=== PATIENT | female | born 1950 | race African-American/Black ===

== ENCOUNTER 2021-09-27 12:08 | Inpatient (IN) | payer MEDICARE ==
[~2021-09-27] VITALS: Ht 165.1 cm; Wt 57.3 kg
[2021-09-27] MEDS ORDERED: MORPHINE SULFATE 4 MG/ML CPJ (NOT FOR IM USE) IV ONE (13:30)
[2021-09-27 13:47] LABS: BASOPHILS % 0.7 % (0.0-2.0); EOSINOPHILS % 4.7 % (0.0-5.0); HEMATOCRIT. 30.1 % (36.0-48.0); HEMOGLOBIN. 9.8 g/dL (12.0-16.0); LYMPHOCYTES % 49.3 % (20.0-50.0); MEAN CORPUSCULAR HEMOGLOBIN 24.4 pg (28.0-32.0); MEAN CORPUSCULAR VOLUME 74.9 fL (81.0-99.0); MEAN PLATELET VOLUME 7.5 fl (7.4-10.4); MONOCYTES % 6.7 % (2.0-8.0); NEUTROPHILS % 38.6 % (40.0-76.0); PLATELET 238 x1000/uL (130-400); RED BLOOD CELL COUNT 4.02 mill/uL (4.2-5.4); RED CELL DISTRIBUTION WIDTH 14.3 % (11.6-14.6)
[2021-09-27 13:52] LABS: CHLORIDE 108 mEq/L (98-107)
[2021-09-27 13:56] LABS: ETHANOL BLOOD < 10 mg/dL
[2021-09-27] MEDS ORDERED: AMOXICILLIN 500 MG CAPSULE PO ONE (14:00)
[2021-09-27] MEDS ORDERED: PREDNISONE 20MG TABLET PO ONE (14:00)
[2021-09-27 14:51] LABS: CLARITY URINE CLEAR (CLEAR); COLOR URINE YELLOW (YELLOW); KETONES URINE NEGATIVE (NEGATIVE); LEUKOCYTE ESTERASE URINE 3+ (NEGATIVE); NITRITE URINE NEGATIVE (NEGATIVE); OCCULT BLOOD URINE NEGATIVE (NEGATIVE); PH URINE 7.5 (4.5-8.0); PROTEIN URINE NEGATIVE (NEGATIVE); SPECIFIC GRAVITY URINE 1.008 (1.005-1.030); UROBILINOGEN URINE 0.2 E.U./dL (0.2-1.0)
[2021-09-27 15:07] LABS: OPIATES URINE SCREEN NEGATIVE (NEGATIVE)
[2021-09-27 15:08] LABS: *AMPHETAMINES SCREEN URINE NEGATIVE (NEGATIVE); *BARBITURATES SCREEN URINE NEGATIVE (NEGATIVE); *BENZODIAZEPINES SCREEN URINE PRESUMTIVE POSITIVE (NEGATIVE); *COCAINE SCREEN URINE NEGATIVE (NEGATIVE); CANNABINOID URINE SCREEN NEGATIVE (NEGATIVE); METHADONE URINE SCREEN NEGATIVE (NEGATIVE); PHENCYCLIDINE URINE SCREEN NEGATIVE (NEGATIVE)
[2021-09-27] MEDS ORDERED: CEFTRIAXONE 1 G PREMIX 50 ML IV ONE (16:45)
[2021-09-27] MEDS ORDERED: ACETAMINOPHEN 325MG TABLET PO NR (18:00)
[2021-09-27] MEDS ORDERED: MORPHINE SULFATE 2 MG/ML CPJ (NOT FOR IM USE) IV NR (18:00)
[2021-09-27] MEDS ORDERED: MAGNESIUM/ALUMINUM HYDROXIDE/SIMETHICONE 30ML UDC PO PRN (19:45)
[2021-09-27] MEDS ORDERED: ACETAMINOPHEN 325MG TABLET PO PRN ×2 (19:45)
[2021-09-27] MEDS ORDERED: IPRATROPIUM/ALBUTEROL 0.5-3(2.5)MG/3ML NEB NEB PRN (19:45)
[2021-09-27] MEDS ORDERED: DOCUSATE SODIUM 100MG CAPSULE PO PRN (19:45)
[2021-09-27] MEDS ORDERED: CLONIDINE 0.1MG TABLET PO PRN (19:45)
[2021-09-27] MEDS ORDERED: TRAMADOL 50MG TABLET PO PRN (19:45)
[2021-09-27] MEDS ORDERED: GUAIFENESIN 200MG/10ML SUGAR FREE UDC PO PRN (19:45)
[2021-09-27] MEDS ORDERED: ZOLPIDEM TARTRATE 5MG TABLET PO PRN (19:45)
[2021-09-27] MEDS ORDERED: NITROGLYCERIN 0.4MG TABLET SL SL PRN (19:45)
[2021-09-27 19:55] LABS: T4 FREE 1.25 ng/dL (0.76-1.46)
[2021-09-27] MEDS ORDERED: LEVOFLOXACIN 500MG PREMIX 100 ML IV SCH (20:00)
[2021-09-27] MEDS ORDERED: ENOXAPARIN 40MG/0.4ML SYR SUBCUT SCH (20:00)
[2021-09-27] MEDS: METOPROLOL TARTRATE 25MG TABLET PO SCH (20:40)
[2021-09-27] MEDS: FAMOTIDINE 20MG TABLET PO SCH (20:41)
[2021-09-27 23:37] LABS: CREATINE KINASE 102 IU/L (26-192)
[2021-09-27 23:38] LABS: CREATINE KINASE MB FRACTION < 1.0 ng/mL (0.5-3.6)
[2021-09-28] VITALS (7 sets, daily range): BP systolic 115–165; BP diastolic 56–95
[2021-09-28] MEDS ORDERED: LOSA25TA26 PO (06:48)
[2021-09-28 07:07] LABS: BASOPHILS % 0.5 % (0.0-2.0); EOSINOPHILS % 0.1 % (0.0-5.0); HEMATOCRIT. 31.1 % (36.0-48.0); HEMOGLOBIN. 10.2 g/dL (12.0-16.0); LYMPHOCYTES % 34.4 % (20.0-50.0); MEAN CORPUSCULAR HEMOGLOBIN 24.3 pg (28.0-32.0); MEAN CORPUSCULAR VOLUME 74.2 fL (81.0-99.0); MEAN PLATELET VOLUME 7.9 fl (7.4-10.4); MONOCYTES % 4.2 % (2.0-8.0); NEUTROPHILS % 60.8 % (40.0-76.0); PLATELET 259 x1000/uL (130-400); RED BLOOD CELL COUNT 4.19 mill/uL (4.2-5.4); RED CELL DISTRIBUTION WIDTH 14.8 % (11.6-14.6)
[2021-09-28] MEDS ORDERED: TIMO15DR12 EACHEYE (07:11)
[2021-09-28] MEDS ORDERED: AMIT100T2 PO (07:11)
[2021-09-28] MEDS ORDERED: ALPR-341 PO (07:11)
[2021-09-28] MEDS ORDERED: BRIM5DRO6 EACHEYE (07:11)
[2021-09-28] MEDS ORDERED: PANT40TA51 PO (07:17)
[2021-09-28 07:22] LABS: CHLORIDE 105 mEq/L (98-107)
[2021-09-28 07:31] LABS: PHOSPHORUS 3.6 mg/dL (2.5-4.9)
[2021-09-28 07:33] LABS: CREATINE KINASE 87 IU/L (26-192)
[2021-09-28 07:36] LABS: CREATINE KINASE MB FRACTION 1.1 ng/mL (0.5-3.6)
[2021-09-28] MEDS ORDERED: ASPIRIN 325MG EC TABLET PO SCH (09:00)
[2021-09-28] MEDS: FAMOTIDINE 20MG TABLET PO SCH (09:35)
[2021-09-28] MEDS: METOPROLOL TARTRATE 25MG TABLET PO SCH (09:36)
[2021-09-28] MEDS: ONDANSETRON HCL 4MG/2ML INJ IV PRN ×2 (09:36→15:06)
[2021-09-28] MEDS ORDERED: FERR-71 PO (11:23)
[2021-09-28] MEDS ORDERED: IMOD MT (11:23)
[2021-09-28] MEDS ORDERED: RISP05 MT (11:23)
[2021-09-28] MEDS ORDERED: PROT40 MT (11:23)
[2021-09-28] MEDS ORDERED: LOSA25TA3 MT (11:23)
[2021-09-28] MEDS ORDERED: BRIM.2 EACHEYE (11:23)
[2021-09-28] MEDS ORDERED: NALOXONE HCL 0.4MG/ML VIAL IV PRN (14:15)
[2021-09-28] MEDS ORDERED: LEVOFLOXACIN 500MG PREMIX 100 ML IV SCH (18:00)
[2021-09-28] MEDS ORDERED: LEVOFLOXACIN 250MG PREMIX 50 ML IV SCH (21:00)
== END 2021-09-28 18:45 | disposition home or self-care (01) | DRG 69 ==
LOC: ER 12:08 → MICUSO 18:44 → EDBEDREQ 18:47 → EDBEDREQSVC 18:47 → EDBEDREQTM 18:47 → 6WST 09-28 02:05
PROVIDERS: ADMIT Internal Medicine; ATTEND Internal Medicine
DX: G45.9 Transient cerebral ischemic attack, unspecified (principal); N39.0 Urinary tract infection, site not specified; I10 Essential (primary) hypertension; Z20.822 Contact with and (suspected) exposure to COVID-19; Z85.44 Personal history of malignant neoplasm of other female genital organs; Z86.73 Personal history of transient ischemic attack (TIA), and cerebral infarction without residual deficits; Z86.718 Personal history of other venous thrombosis and embolism; Z88.5 Allergy status to narcotic agent; Z88.8 Allergy status to other drugs, medicaments and biological substances; Z91.041 Radiographic dye allergy status; Z79.899 Other long term (current) drug therapy; Z85.09 Personal history of malignant neoplasm of other digestive organs; Z76.5 Malingerer [conscious simulation]
CPT/HCPCS: 36415; 70551; 71045; 74176; 80053; 80061; 80305; 80320; 81003; 82550; 82553; 82607; 82746; 82962; 83036; 83540; 83550; 83735; 84100; 84439; 84443; 84484; 85025; 87426; 93005; 93306; 93970; 99285; J0696; J1650; J1956; J2270; J2405; J7512; G0480